=== PATIENT | female | born 1995 | race Caucasian/White ===

== ENCOUNTER 2016-12-20 18:21 | Emergency (ER) | payer MEDICAID ==
[~2016-12-20] VITALS: Ht 160 cm; Wt 69.0 kg
[~2016-12-20 18:21] MED LIST: PREN-39 PO
[2016-12-20 18:29] VITALS: Ht 160 cm; Wt 69.0 kg
[2016-12-20] MEDS ORDERED: ACETAMINOPHEN 500 MG TAB PO STA (18:46)
--- NOTE | 2016-12-20 19:15 | ERD ---
ER Documentation Chief Complaint Date/Time DATE: 12/20/16 TIME: 19:11 Chief Complaint abd pain for few days with heavy period HPI 20-year-old female comes in with mid abdominal pain for the last 2 months, she states it is worsened and is in the lower abdomen for the past 2-3 days. Pain is described as moderate, diffuse, radiates to the mid abdomen down to the lower quadrants, achy. She denies nausea, vomiting or diarrhea. She also reports that a fever started today. She has had a menstrual period for approximately 2 weeks now that just stopped today. ROS All systems reviewed and are negative except as per history of present illness. Medications Home Meds Active Scripts Cephalexin* (Keflex*) 500 Mg Capsule, 500 MG PO TID for 10 Days, CAP Prov:ROB VENTURA PA-C 12/20/16 Tramadol HCl (Tramadol HCl) 50 Mg Tablet, 50 MG PO Q4 Y for PAIN, #20 TAB Prov:ROB VENTURA PA-C 12/20/16 Reported Medications Vits W-Ca,Fe,Fa(<1MG) ( Vitamins) 1 Tab Tablet, 1 TAB PO 12/22/13 Allergies Allergies: Coded Allergies: No Known Allergies (Verified Allergy, Mild, 12/22/13) PMhx/Soc Medical and Surgical Hx: pt denies Medical Hx, pt denies Surgical Hx History of Surgery: No Anesthesia Reaction: No Hx Neurological Disorder: No Hx Respiratory Disorders: No Hx Cardiac Disorders: No Hx Psychiatric Problems: No Hx Miscellaneous Medical Probl: No Hx Alcohol Use: Yes Hx Substance Use: Yes (MARIJUANA) Hx Tobacco Use: Yes Smoking Status: Never smoker Physical Exam Vitals Vital Signs Date Time Temp Pulse Resp B/P Pulse Ox O2 Delivery O2 Flow Rate FiO2 12/20/16 22:41 99.0 67 18 120/56 96 Room Air 12/20/16 18:29 101.9 119 18 125/59 96 Physical Exam General: Well-developed, well-nourished. The patient appears in no acute distress. HEENT: Head is normocephalic, atraumatic. No scleral icterus. Neck: Supple. Nontender. Lungs: Clear to auscultation. Normal air movement. Heart: Regular rate and rhythm. S1 and S2 are normal. No murmurs, gallops, or rubs. Abdomen: Soft, tender in the mid abdomen diffuse in the lower quadrants nondistended. Bowel sounds are normoactive. Extremities: No clubbing or cyanosis. Normal pulses. Moving extremities x 4. No weakness. Neurologic: Alert and oriented 3. No focal deficits. Skin: Normal turgor. No rash or lesions. Result Diagram: 12/20/16 1855 12/20/16 1855 Results 24 hrs Laboratory Tests Test 12/20/16 18:55 White Blood Count 17.410^3/ul Red Blood Count 4.4310^6/ul Hemoglobin 13.1g/dl Hematocrit 38.9% Mean Corpuscular Volume 87.8fl Mean Corpuscular Hemoglobin 29.6pg Mean Corpuscular Hemoglobin Concent 33.7g/dl Red Cell Distribution Width 13.9% Platelet Count 01103^3/UL Mean Platelet Volume 10.8fl Neutrophils % 90.9% Lymphocytes % 5.7% Monocytes % 2.7% Eosinophils % 0.0% Basophils % 0.2% Nucleated Red Blood Cells % 0.0/100WBC Neutrophils # 15.810^3/ul Lymphocytes # 1.010^3/ul Monocytes # 0.510^3/ul Eosinophils # 0.010^3/ul Basophils # 0.010^3/ul Nucleated Red Blood Cells # 0.010^3/ul Urine Color YELLOW Urine Clarity SLIGHTLY CLOUDY Urine pH 7.0 Urine Specific [place] 1.021 Urine Ketones TRACEmg/dL Urine Nitrite NEGATIVEmg/dL Urine Bilirubin NEGATIVEmg/dL Urine Urobilinogen 2+mg/dL Urine Leukocyte Esterase 2+Felipe/ul Urine Microscopic RBC 28/HPF Urine Microscopic WBC 34/HPF Urine Squamous Epithelial Cells MODERATE/HPF Urine Mucus FEW/HPF Urine Hemoglobin 2+mg/dL Urine Glucose NEGATIVEmg/dL Urine Total Protein 1+mg/dl Sodium Level 136mmol/L Potassium Level 3.9mmol/L Chloride Level 100mmol/L Carbon Dioxide Level 26mmol/L Anion Gap 14 Blood Urea Nitrogen 8mg/dl Creatinine 0.74mg/dl Glucose Level 113mg/dl Calcium Level 9.3mg/dl Total Bilirubin 1.6mg/dl Direct Bilirubin 0.00mg/dl Indirect Bilirubin 1.6mg/dl Aspartate Amino Transf (AST/SGOT) 16IU/L Alanine Aminotransferase (ALT/SGPT) 25IU/L Alkaline Phosphatase 60IU/L Total Protein 8.3g/dl Albumin 5.0g/dl Globulin 3.30g/dl Albumin/Globulin Ratio 1.51 Lipase 30U/L Current Medications Medications (Trade) Dose Ordered Sig/Renetta Route PRN Reason Start Time Stop Time Status Last Admin Dose Admin Acetaminophen (Tylenol Tab) 1,000 mg ONCE STAT PO 12/20/16 18:46 12/20/16 18:47 DC 12/20/16 18:56 Ceftriaxone Sodium (Rocephin) 1 gm ONCE ONCE IM 12/20/16 20:30 12/20/16 20:31 DC 12/20/16 20:44 Lidocaine (Xylocaine 1% (Mdv) 20 ml) 2 ml ONCE ONCE IM 12/20/16 20:30 12/20/16 20:31 DC 12/20/16 20:45 DIAGNOSTIC IMAGING REPORT Patient: OREN HERNANDEZ : 1995 Age: 21 Sex: F MR #: [id number] DOS: 12/20/162050 Ordering MD: ROB VENTRUA PA-C Location: [facility] Room/Bed: PROCEDURE: US Abdomen (right upper quadrant). CLINICAL INDICATION: Right upper quadrant abdomen pain. TECHNIQUE: Multiple real-time longitudinal and transverse images of the right upper quadrant of the abdomen were acquired utilizing a curved array transducer. Images were reviewed on a high-resolution PACS workstation. COMPARISON: CT scan of the abdomen and pelvis done earlier the same day. FINDINGS: The liver is normal in size and normal in echogenicity. There is no focal hepatic lesion. The gallbladder is normal with no stones or wall thickening. There is no pericholecystic fluid collection. The bile ducts are normal with the common bile duct measuring 3.6 mm in diameter. The visualized portions of the pancreas are unremarkable with obscuration of the tail of the pancreas. No free fluid is present. The right kidney measures 10.4 cm. There is normal echogenicity of the right kidney. There is no perinephric fluid collection. No hydronephrosis, mass, or calculus is seen. IMPRESSION: 1. Unremarkable right upper quadrant abdomen ultrasound. RPTAT: QQ .Wilbert Sams MD, Date Time Electronically viewed and signed by .Wilbert Sams MD, MD on 12/20/2016 21:15 .R/ CC: ROB VENTURA PA-C DIAGNOSTIC IMAGING REPORT Patient: OREN HERNANDEZ : 1995 Age: 21 Sex: F MR #: [id number] DOS: 12/20/16 1846 Ordering MD: RBO VENTURA PA-C Location: E Room/Bed: PROCEDURE: CT scan of the abdomen and pelvis without IV contrast. CLINICAL INDICATION: 21-year-old female with abdominal pain. TECHNIQUE: Thin section axial, coronal and sagittal images were performed through the abdomen and pelvis without contrast. Radiation Dose: CTDI: 8.1 and DLP: 424.2 One or more of the following dose reduction techniques were used: - Automated exposure control. - Adjustment of the mA and/or kV according to patient size. Use of iterative reconstruction technique. COMPARISON: Chest x-ray 07/28/2016 06:18 a.m. FINDINGS: Soft tissues: Normal. Lungs and pleural spaces: Normal. Heart: Normal. The liver, common bile duct and gallbladder: The liver is enlarged measuring 16.5 cm AP. No hepatic mass or intrahepatic biliary ductal dilatation is identified. The gallbladder and gallbladder wall are normal. Gastrointestinal: No hiatal hernia is identified. The stomach and small bowel loops are normal. Some of the small bowel loops containing fluid but there is no evidence of small bowel mucosal thickening. The vermiform appendix and colon are normal. Pancreas: Normal. Kidneys, bladder and adrenal glands : Normal. Spleen: Normal. Lymph nodes: Normal. Reproductive system and pelvis : The uterus is anteflexed and unremarkable. No abnormal adnexal mass is identified. The ovaries are not clearly visualized. Bony elements: Normal. Vasculature: Normal. IMPRESSION: 1. No acute abdominal process is identified. 2. Hepatomegaly. RPTAT:AAJJ Physician Eliecer Date Time Electronically viewed and signed by Nicholas Romero, Physician on 12/20/2016 19:50 JM/ CC: ROB VENTURA PA-C Procedures/MDM ED course: Labs and urine were obtained. She was given Tylenol 1 g by mouth for the fever and pain. Medical decision making: This is a 21-year-old female coming in with mid abdominal pain and fever, comes in with a UTI, likely pyelonephritis. She has a fever, and UTI, and was treated with rocephin 1g IM. Labs showed leukocytosis, but no surgical process, CT is negative. No evidence of acute cholecystitis, pancreas or masses. Departure Diagnosis: Primary Impression: Abdominal pain Additional Impression: UTI (urinary tract infection) Condition: Good ROB VENTURA PA-C Dec 20, 2016 19:14
[2016-12-20 19:16] LABS: ADD SCAN DIFF NO
[2016-12-20 19:20] LABS: BASOPHILS % 0.2 % (0.0-2.0); HEMATOCRIT 38.9 % (37.0-47.0); HEMOGLOBIN 13.1 g/dl (12.0-16.0); LYMPHOCYTES % 5.7 % (15.0-51.0); MEAN CORPUSCULAR HEMOGLOBIN 29.6 pg (29.0-33.0); MEAN CORPUSCULAR HGB CONC 33.7 g/dl (32.0-37.0); MEAN CORPUSCULAR VOLUME 87.8 fl (82.0-101.0); MEAN PLATELET VOLUME 10.8 fl (7.4-10.4); MONOCYTE # 0.5 10^3/ul (0.3-0.9); MONOCYTES % 2.7 % (0.0-11.0); NEUTROPHIL # 15.8 10^3/ul (1.6-7.5); NEUTROPHILS % 90.9 % (39.0-77.0); PLATELET COUNT 293 10^3/UL (140-415); RED BLOOD COUNT 4.43 10^6/ul (4.20-5.40); RED CELL DISTRIBUTION WIDTH 13.9 % (11.5-14.5); WHITE BLOOD COUNT 17.4 10^3/ul (4.8-10.8)
[2016-12-20 19:32] LABS: ADD UMIC YES; UR ASCORBIC ACID NEGATIVE (NEGATIVE); UR BILIRUBIN (Dip) NEGATIVE (NEGATIVE); UR BLOOD (Dip) 2+ mg/dL (NEGATIVE); UR CLARITY SLIGHTLY CLOUDY (CLEAR); UR COLOR YELLOW (YELLOW); UR GLUCOSE (Dip) NEGATIVE (NEGATIVE); UR KETONES (Dip) TRACE mg/dL (NEGATIVE); UR LEUKOCYTE ESTERASE (Dip) 2+ Leu/ul (NEGATIVE); UR MUCUS FEW /HPF (NONE SEEN); UR NITRITE (Dip) NEGATIVE (NEGATIVE); UR RBC 28 /HPF (0-5); UR SPECIFIC GRAVITY (Dip) 1.021 (1.003-1.030); UR SQUAMOUS EPITHELIAL CELL MODERATE /HPF (FEW); UR TOTAL PROTEIN (Dip) 1+ mg/dl (NEGATIVE); UR UROBILINOGEN (Dip) 2+ mg/dL (NEGATIVE)
[2016-12-20 19:37] LABS: ALBUMIN/GLOBULIN RATIO 1.51; BILIRUBIN,INDIRECT 1.6 mg/dl (0-1.1); BILIRUBIN,TOTAL 1.6 mg/dl (0.2-1.3); CALCIUM 9.3 mg/dl (8.4-10.2); CREATININE 0.74 mg/dl (0.44-1.00); POTASSIUM 3.9 mmol/L (3.5-5.1); TOTAL PROTEIN 8.3 g/dl (6.1-8.1)
--- NOTE | 2016-12-20 19:50 | RADRPT ---
PROCEDURE: CT scan of the abdomen and pelvis without IV contrast. CLINICAL INDICATION: 21-year-old female with abdominal pain. TECHNIQUE: Thin section axial, coronal and sagittal images were performed through the abdomen and pelvis without contrast. Radiation Dose: CTDI: 8.1 and DLP: 424.2 One or more of the following dose reduction techniques were used: - Automated exposure control. - Adjustment of the mA and/or kV according to patient size. Use of iterative reconstruction technique. COMPARISON: Chest x-ray 07/28/2016 06:18 a.m. FINDINGS: Soft tissues: Normal. Lungs and pleural spaces: Normal. Heart: Normal. The liver, common bile duct and gallbladder: The liver is enlarged measuring 16.5 cm AP. No hepatic mass or intrahepatic biliary ductal dilatation is identified. The gallbladder and gallbladder wall are normal. Gastrointestinal: No hiatal hernia is identified. The stomach and small bowel loops are normal. [place] e of the small bowel loops containing fluid but there is no evidence of small bowel mucosal thickeni ng. The vermiform appendix and colon are normal. Pancreas: Normal. Kidneys, bladder and adrenal glands : Normal. Spleen: Normal. Lymph nodes: Normal. Reproductive system and pelvis : The uterus is anteflexed and unremarkable. No abnormal adnexal mas s is identified. The ovaries are not clearly visualized. Bony elements: Normal. Vasculature: Normal. IMPRESSION: 1. No acute abdominal process is identified. 2. Hepatomegaly. RPTAT:AAJJ Physician Eliecer Date Time Electronically viewed and signed by Physician Eliecer on 12/20/2016 19:50 PRAKASH/
[2016-12-20] MEDS ORDERED: CEFTRIAXONE 1 GM INJ IM ONE (20:30)
[2016-12-20] MEDS ORDERED: LIDOCAINE 1% (MDV) 20 ML INJ IM ONE (20:30)
[2016-12-20] MEDS ORDERED: TRAM50TA2 PO (20:53)
--- NOTE | 2016-12-20 21:16 | RADRPT ---
PROCEDURE: US Abdomen (right upper quadrant). CLINICAL INDICATION: Right upper quadrant abdomen pain. TECHNIQUE: Multiple real-time longitudinal and transverse images of the right upper quadrant of th e abdomen were acquired utilizing a curved array transducer. Images were reviewed on a high-resoluti on PACS workstation. COMPARISON: CT scan of the abdomen and pelvis done earlier the same day. FINDINGS: The liver is normal in size and normal in echogenicity. There is no focal hepatic lesion. The gallbladder is normal with no stones or wall thickening. There is no pericholecystic fluid frances ection. The bile ducts are normal with the common bile duct measuring 3.6 mm in diameter. The visualized portions of the pancreas are unremarkable with obscuration of the tail of the pancrea s. No free fluid is present. The right kidney measures 10.4 cm. There is normal echogenicity of the right kidney. There is no perinephric fluid collection. No hydronephrosis, mass, or calculus is seen. IMPRESSION: 1. Unremarkable right upper quadrant abdomen ultrasound. RPTAT: QQ .Wilbert Sams MD, Date Time Electronically viewed and signed by .Wilbert Sams MD, MD on 12/20/2016 21:15 .R/
[2016-12-20] MEDS ORDERED: CEPH-443 PO (21:39)
[2016-12-20 22:41] VITALS: BP 120/56; PULSE 67; RESP 18; TEMP 99
== END 2016-12-20 22:42 | disposition home or self-care (01) ==
LOC: FTE 18:21
DX: R10.84 Generalized abdominal pain (principal); N39.0 Urinary tract infection, site not specified
CPT/HCPCS: 74176; 76705; 80053; 81001; 83690; 85025; J0696; Z7610; 36415; 96372